=== PATIENT | female | born 1950 | race Caucasian/White ===

== ENCOUNTER → 2017-02-27 | Outpatient (REF) | payer MEDICARE, MEDICAID, OTHER | LOC: M SMT 13:25 | PROVIDERS: ATTEND Nurse Practitioner Women's Health | DX: N39.0 Urinary tract infection, site not specified (principal) ==

== ENCOUNTER → 2017-10-31 | Outpatient (REF) | payer MEDICARE, MEDICAID ==
[2017-10-31 17:26] LABS: ERYTHROCYTE SEDIMENTATION RATE 20 mm/hr (0-30)
[2017-10-31 18:01] LABS: ANION GAP 8 MEQ/L (8-16); BLOOD UREA NITROGEN 28 MG/DL (7-18); CARBON DIOXIDE LEVEL 27 MEQ/L (21-32); CHLORIDE LEVEL 104 MEQ/L (98-107); CREATININE FOR GFR 1.35 MG/DL (0.55-1.02); GLOMERULAR FILTRATION RATE 41.8 (>45); GLUCOSE, FASTING 338 MG/DL (80-110); POTASSIUM SERUM 4.7 MEQ/L (3.5-5.1); SODIUM LEVEL 139 MEQ/L (136-145)
== END ==
LOC: M LAB REF 16:21
DX: E11.621 Type 2 diabetes mellitus with foot ulcer (principal); L97.422 Non-pressure chronic ulcer of left heel and midfoot with fat layer exposed
CPT/HCPCS: 80048

== ENCOUNTER → 2017-11-14 | Outpatient (CLI) | payer MEDICARE, MEDICAID ==
[~2017-11-14] MED LIST: PROHANCE 279.3MG/ML 5ML VIAL (A9576) As Ordered
== END ==
LOC: M RAD 08:39
DX: E11.621 Type 2 diabetes mellitus with foot ulcer (principal); L97.529 Non-pressure chronic ulcer of other part of left foot with unspecified severity
CPT/HCPCS: A9576

== ENCOUNTER → 2020-04-06 | Outpatient (REF) | payer MEDICARE, MEDICAID ==
[2020-04-06 18:32] LABS: APPEARANCE, URINE CLOUDY (CLEAR); BACTERIA, URINE AUTO NEGATIVE (NEGATIVE); BILIRUBIN, URINE AUTO NEGATIVE (NEGATIVE); BLOOD, URINE BLOOD 3+ (NEGATIVE); COLOR, URINE RED (YELLOW); GLUCOSE, URINE (UA) AUTO 1+ mg/dL (NEGATIVE); KETONE, URINE AUTO NEGATIVE (NEGATIVE); LEUKOCYTE ESTERASE, URINE AUTO NEGATIVE (NEGATIVE); NITRITE, URINE AUTO NEGATIVE (NEGATIVE); PROTEIN, URINE AUTO 2+ mg/dL (NEGATIVE); RBC, URINE AUTO TNTC /HPF (0-3); SPECIFIC GRAVITY URINE AUTO 1.018 (1.002-1.035); SQUAMOUS EPITHELIAL CELL UR AU 0 /HPF (0-6); UROBILINOGEN, URINE AUTO 0.2 mg/dL (0.0-2.0); WBC, URINE AUTO 41 /HPF (0-3)
== END ==
LOC: M SMT 17:01
PROVIDERS: ATTEND Nurse Practitioner Family
DX: N39.0 Urinary tract infection, site not specified (principal); R31.0 Gross hematuria
CPT/HCPCS: 81001; 87086; 88108; G0463

== ENCOUNTER → 2020-04-11 | Outpatient (REF) | payer OTHER | LOC: M SMT 17:18 | PROVIDERS: ATTEND Nurse Practitioner Family | DX: R31.0 Gross hematuria (principal) ==

== ENCOUNTER → 2020-05-02 | Outpatient (REF) | payer OTHER, MEDICAID | LOC: M SMT 14:54 | PROVIDERS: ATTEND Urology | DX: R31.0 Gross hematuria (principal) ==

== ENCOUNTER → 2020-06-23 | Outpatient (CLI) | payer OTHER, MEDICAID ==
[~2020-06-23] MED LIST changes: +EZET1TAB8 PO; +JANU100T PO; +MACR100C43 PO; +METF10004 PO; -PROHANCE 279.3MG/ML 5ML VIAL (A9576) As Ordered; +TOUJ1.2I SC; +XARE10TA PO
== END ==
LOC: M LABSMTC 12:43
PROVIDERS: ATTEND Anesthesiology
DX: Z01.812 Encounter for preprocedural laboratory examination (principal); Z20.828 Contact with and (suspected) exposure to other viral communicable diseases

== ENCOUNTER 2020-06-28 07:00 | Day surgery (SDC) | payer OTHER, MEDICAID ==
[~2020-06-28] VITALS: Ht 160 cm; Wt 80.3 kg
[~2020-06-28 07:00] MED LIST changes: +LIDOCAINE 1% MDV 20ML VIAL SQ PRN; -MACR100C43 PO
[2020-06-28] MEDS ORDERED: MACR100C43 PO (07:22)
[2020-06-28] MEDS ORDERED: ceFAZolin 2 GM/D5W 50 ML IV BAG (J0690 PER 500MG) As Ordered ONE (07:26)
[2020-06-28] MEDS ORDERED: MIDAZOLAM INJ 2MG/2ML VIAL (J2250 PER 1MG) As Ordered ONE (08:01)
[2020-06-28] MEDS ORDERED: fentaNYL 100 MCG/2 ML INJECTION (J3010) As Ordered ONE (08:03)
[2020-06-28] MEDS ORDERED: LIDOCAINE 2% 100MG/5ML SDV (FOR ANES.) As Ordered ONE (08:04)
[2020-06-28] MEDS ORDERED: LR 1,000 ML IV ONE (08:15)
[2020-06-28] MEDS ORDERED: ceFAZolin SOD 2 GM in IV 1 EA IV ONE (08:15)
[2020-06-28] MEDS ORDERED: CONRAY-60 60% 50ML VIAL (Q9961) As Ordered ONE (08:17)
[2020-06-28] MEDS ORDERED: PHENYLephrine HCL 500 MCG/5 ML (100MCG/ML) SYRINGE (J2370) As Ordered ONE (08:41)
[2020-06-28] MEDS ORDERED: dexameTHASONE 4 MG/ML 1ML VIAL (J1100 PER 1MG) As Ordered ONE (08:41)
[2020-06-28] MEDS ORDERED: ONDANSETRON 4MG/2ML VIAL As Ordered ONE (08:41)
[2020-06-28] MEDS ORDERED: ePHEDrine SULFATE 25 MG/5 ML(5MG/ML) SYRINGE As Ordered ONE (08:41)
[2020-06-28] MEDS ORDERED: propofoL 200 MG/20 ML VIAL As Ordered ONE (08:41)
[2020-06-28] MEDS ORDERED: fentaNYL 100 MCG/2 ML INJECTION (J3010) IV PRN (09:45)
[2020-06-28] MEDS ORDERED: PERCOCET 5MG/325MG TAB PO PRN ×2 (09:45)
[2020-06-28] MEDS ORDERED: LR 1,000 ML IV SCH (09:45)
[2020-06-28 10:14] VITALS: BP 169/74
--- NOTE | 2020-07-05 11:51 | REP ---
RETROGRADE PYELOGRAM CLINICAL: History of nephroureterolithiasis for stent placement. TECHNIQUE: Intraoperative fluoroscopic imaging during pyelogram study. FINDINGS: Multiple images demonstrate the patient to be status post satisfactory left ureteral stent placement. Total fluoroscopic time equals 27 seconds. IMPRESSION: Satisfactory left ureteral stent placement. MTDD
[2020-07-11 21:06] LABS: Ca Ox Monohydrate 100 % (.)
--- NOTE | 2020-08-10 11:19 | RO ---
DATE OF PROCEDURE: 06/28/2020 PRE-PROCEDURE DIAGNOSIS: Gross hematuria. POST-PROCEDURE DIAGNOSES: * Gross hematuria. * Left kidney, ureteral, and bladder cysts. * Kidney stone. PROCEDURES: * Cystoscopy. * Left ureteroscopy with basket extraction of stone. * Left retrograde pyelogram with intraoperative interpretative images. * Left ureteral stent placement. SURGEON: Josué Zuleta MD WAREHOUSE DRIVER: None. ANESTHESIA: General. OPERATIVE INDICATIONS: This is a 70-year-old female who was seen to have gross hematuria, and in the office on cystoscopy was found to have blood coming from the left ureteral orifice. She was brought to the operating room today to investigate this. DESCRIPTION OF PROCEDURE: The patient was brought to the operating room and general anesthesia was induced. Prophylactic antibiotics were infused. She was then placed in the dorsal lithotomy position and prepped and draped in the usual sterile fashion. A rigid cystoscope was inserted into the urethral meatus and advanced to the bladder. A guidewire was advanced up the left collecting system. Of note, prior to doing that, I examined the bladder thoroughly and the only abnormality seen was a few cysts inside the bladder. Once the guidewire was advanced up the left collecting system, a ureteral access sheath was advanced up the left collecting system. I went up the access sheath with a flexible ureteroscope and examined the left kidney thoroughly. Of note, there were several yellow cystic-appearing lesions along the wall of the kidney and the ureter. There was an approximately 3-mm stone in the mid pole calyx. The stone was removed using a basket. No tumors or other concerning masses were seen. Of note, when I brushed the cystic lesions with the scope, they opened up and clear fluid came out. I therefore, decided not to try to biopsy them. A retrograde pyelogram was then performed and was notable for mild left hydronephrosis with no extravasation. I then withdrew the ureteroscope along with the access sheath and the only abnormalities seen were additional cysts inside the ureteral lumen. They were not obstructing. Once the ureteroscope was removed, the wire was utilized to advance a 6-Micronesian x 22- 32 cm JJ ureteral stent into the left collecting system. The wire was removed and there were adequate curls of the stent in the left renal pelvis and in the bladder. The bladder was then emptied of all fluids. This marked the conclusion of the procedure. The patient was then taken out of dorsal lithotomy position, awakened from anesthesia, and transported to the recovery room in stable condition. ESTIMATED BLOOD LOSS: 5 mL. COMPLICATIONS: None. SPECIMENS: Kidney stone. PLAN: The patient will follow up in the [facility] in two weeks for stent removal. No additional workup is required for the gross hematuria. MONI
== END 2020-06-28 10:43 | disposition home or self-care (01) ==
LOC: M SDC 07:00
PROVIDERS: ATTEND Urology
DX: R31.0 Gross hematuria (principal); N20.0 Calculus of kidney; Z88.2 Allergy status to sulfonamides; Z79.4 Long term (current) use of insulin; Z79.84 Long term (current) use of oral hypoglycemic drugs; Z79.899 Other long term (current) drug therapy
CPT/HCPCS: 52332; 52352; 74420; 82365; 88300; C1769; C1894; C2617; J0690; J1100; J2370; J2405; J3010; Q9961

== ENCOUNTER → 2022-10-08 | Outpatient (REF) | payer MEDICARE, OTHER, MEDICAID ==
[~2022-10-08] MED LIST changes: -EZET1TAB8 PO; +EZET1TAB98 PO; -LIDOCAINE 1% MDV 20ML VIAL SQ PRN; +MACR100C43 PO
[2022-10-08 18:32] LABS: APPEARANCE, URINE MANUAL HAZY (CLEAR); COLOR, URINE MANUAL YELLOW (YELLOW); GLUCOSE, URINE (UA) MANUAL 4+(1000 MG/DL) mg/dL (NEGATIVE); PROTEIN, URINE MANUAL NEGATIVE (NEGATIVE); SPECIFIC GRAVITY,URINE MANUAL 1.015 (1.002-1.035)
[2022-10-08 18:33] LABS: BILIRUBIN, URINE MANUAL NEGATIVE (NEGATIVE); BLOOD URINE MANUAL POSITIVE (NEGATIVE); KETONE, URINE MANUAL 1+ mg/dL (NEGATIVE); LEUKOCYTE ESTERASE, URINE MAN POSITIVE (NEGATIVE); NITRITE, URINE MANUAL POSITIVE (NEGATIVE); UROBILINOGEN, URINE MANUAL NORMAL (NORMAL)
[2022-10-08 19:10] LABS: RBC, URINE NONE SEEN /hpf (0-3)
[2022-10-08 19:11] LABS: BACTERIA, URINE MOD AMOUNT; HYALINE CAST, URINE NONE SEEN /lpf (0-1); SQUAMOUS EPITHELIAL CELL URINE NONE SEEN /hpf (SMALL AMT)
== END ==
LOC: M SMT 16:54
PROVIDERS: ATTEND Nurse Practitioner Women's Health
DX: R31.0 Gross hematuria (principal)

== ENCOUNTER → 2023-05-02 | Outpatient (REF) | payer MEDICARE, MEDICAID ==
[2023-05-02 13:55] LABS: APPEARANCE, URINE HAZY (CLEAR); BACTERIA, URINE AUTO 1+ (NEGATIVE); BILIRUBIN, URINE AUTO NEGATIVE (NEGATIVE); BLOOD, URINE BLOOD 2+ (NEGATIVE); COLOR, URINE YELLOW (YELLOW); GLUCOSE, URINE (UA) AUTO 3+ mg/dL (NEGATIVE); KETONE, URINE AUTO NEGATIVE (NEGATIVE); LEUKOCYTE ESTERASE, URINE AUTO NEGATIVE (NEGATIVE); MUCUS, URINE SMALL (NEGATIVE); NITRITE, URINE AUTO NEGATIVE (NEGATIVE); PROTEIN, URINE AUTO 1+ mg/dL (NEGATIVE); RBC, URINE AUTO 2 /HPF (0-3); SPECIFIC GRAVITY URINE AUTO 1.029 (1.002-1.035); SQUAMOUS EPITHELIAL CELL UR AU 0 /HPF (0-6); UROBILINOGEN, URINE AUTO 0.2 mg/dL (0.0-2.0); WBC, URINE AUTO 5 /HPF (0-3)
== END ==
LOC: M SMT 12:58
PROVIDERS: ATTEND Physician Assistant
DX: Z87.898 Personal history of other specified conditions (principal); Z79.899 Other long term (current) drug therapy

== ENCOUNTER → 2023-08-07 | Outpatient (REF) | payer MEDICARE, MEDICAID ==
[2023-08-07 14:59] LABS: APPEARANCE, URINE MANUAL HAZY (CLEAR); COLOR, URINE MANUAL YELLOW (YELLOW)
[2023-08-07 15:01] LABS: BILIRUBIN, URINE MANUAL NEGATIVE (NEGATIVE); BLOOD URINE MANUAL POSITIVE (NEGATIVE); GLUCOSE, URINE (UA) MANUAL 4+(1000 MG/DL) mg/dL (NEGATIVE); KETONE, URINE MANUAL NEGATIVE (NEGATIVE); LEUKOCYTE ESTERASE, URINE MAN TRACE (NEGATIVE); NITRITE, URINE MANUAL NEGATIVE (NEGATIVE); PROTEIN, URINE MANUAL NEGATIVE (NEGATIVE); UROBILINOGEN, URINE MANUAL NORMAL (NORMAL)
[2023-08-07 15:15] LABS: BACTERIA, URINE LARGE AMOUNT; MUCUS, URINE SMALL AMOUNT (NEGATIVE); RBC, URINE 0-1 /hpf (0-3); SQUAMOUS EPITHELIAL CELL URINE NONE SEEN /hpf (SMALL AMT)
[2023-08-07 15:16] LABS: HYALINE CAST, URINE NONE SEEN /lpf (0-1)
== END ==
LOC: M SMT 14:01
PROVIDERS: ATTEND Physician Assistant
DX: Z87.898 Personal history of other specified conditions (principal); Z79.899 Other long term (current) drug therapy

== ENCOUNTER → 2024-09-27 | Outpatient (REF) | payer MEDICARE, MEDICAID, OTHER ==
[2024-09-27 18:17] LABS: AMORPHOUS SEDIMENT SMALL (NEGATIVE); APPEARANCE, URINE HAZY (CLEAR); BACTERIA, URINE AUTO 2+ (NEGATIVE); BILIRUBIN, URINE AUTO NEGATIVE (NEGATIVE); BLOOD, URINE BLOOD 3+ (NEGATIVE); COLOR, URINE YELLOW (YELLOW); GLUCOSE, URINE (UA) AUTO 3+ mg/dL (NEGATIVE); KETONE, URINE AUTO NEGATIVE (NEGATIVE); LEUKOCYTE ESTERASE, URINE AUTO 1+ (NEGATIVE); MUCUS, URINE SMALL (NEGATIVE); NITRITE, URINE AUTO POSITIVE (NEGATIVE); PROTEIN, URINE AUTO 1+ mg/dL (NEGATIVE); RBC, URINE AUTO TNTC /HPF (0-3); SPECIFIC GRAVITY URINE AUTO 1.017 (1.002-1.035); SQUAMOUS EPITHELIAL CELL UR AU 0 /HPF (0-6); UROBILINOGEN, URINE AUTO 0.2 mg/dL (0.0-2.0); WBC, URINE AUTO 56 /HPF (0-3)
== END ==
LOC: M SMT 17:09
PROVIDERS: ATTEND Physician Assistant
DX: Z87.898 Personal history of other specified conditions (principal)